=== PATIENT | male | born 1960 | race Caucasian/White ===

== ENCOUNTER → 2018-09-24 | Outpatient (CLI) | payer BC, SELFPAY ==
--- NOTE | 2018-09-24 13:51 | DI.US_ITS ---
SYMPTOM/DIAGNOSIS: PROSTATE NODULE, RISING PSA, N40.2 PROSTATE ULTRASOUND GUIDED BIOPSY: Prostate ultrasound was performed for Dr. Salguero for guidance with prostate biopsy. The prostate volume is calculated at 36 cc's. Please see procedure note for details.
--- NOTE | 2018-09-24 14:30 | PROST_PTH ---
PATIENT: Adolfo Linares LOC: TG U#:[id number] AGE/SX: 58/M ROOM: RE09/24/[address]: Alis Santo DNP : 1960 BED: DIS: 09/24/2018 SPEC #: [id number] RECD: 09/24/18 17:58 STATUS: ALISON RE #: [id number] TAY: 09/24/18 14:[address]: Alis Santo DEPT: Surgical Specimen RECD BY: Marlene French ENTERED: 09/24/18 17:59 SP TYPE: PROST OTHR DR: Bong Harden Tissues: 1 - PROSTATE NEEDLE BIOPSY 2 - PROSTATE NEEDLE BIOPSY 3 - PROSTATE NEEDLE BIOPSY 4 - PROSTATE NEEDLE BIOPSY 5 - PROSTATE NEEDLE BIOPSY 6 - PROSTATE NEEDLE BIOPSY 7 - PROSTATE NEEDLE BIOPSY 8 - PROSTATE NEEDLE BIOPSY 9 - PROSTATE NEEDLE BIOPSY 10 - PROSTATE NEEDLE BIOPSY 11 - PROSTATE NEEDLE BIOPSY 12 - PROSTATE NEEDLE BIOPSY Procedures: GROSS AND MICRO LEVEL 4 Comments: [id number]
--- NOTE | 2018-09-24 14:37 | ROE_ITS ---
Date of service: 09/24/18 Time of Service: 14:37 Operative Note PRE-OP DIAGNOSIS: Elevated PSA POST-OP DIAGNOSIS: same PROCEDURE: Transrectal ultrasound-guided biopsy of the prostate SURGEON: Greg Salguero ANESTHESIA: local ESTIMATED BLOOD LOSS: 0 PATHOLOGY: other COMPLICATIONS: None Patient was transported to: other Patient's condition: stable Indications: This is a 58-year-old gentleman who was identified as having an a bnormal palpable area on the left side of his prostate. He was also found to have an elevated PSA of 5.0 ng/mL. He presents for prostate ultrasound-guided biopsy. Procedure Description: The patient was brought to the procedure room on 09/24/2018. He was given a preoperative antibiotic and mechanical bowel prep. He was placed in the left lateral position. Transrectal imaging the prostate was performed using a transrectal probe. The prostate was imaged in transverse and longitudinal planes. The prostatic volume was calculated at 36 cc. There was a discrete hypoechoic area in the left peripheral zone just to the left of the midline. This area extended from the mid prostate out to the apex. No abnormalities were seen up towards the prostatic base or seminal vesicles. A periprosthetic nerve block was then performed using 1% Xylocaine without epinephrine. A total of 12 laterally directed biopsies were taken. At least 3 of the cores were taken through the hypoechoic area. Each biopsy was labeled and sent to pathology for permanent section. He tolerated this procedure well with no complication. He will follow-up in 1 week to review the surgical pathology.
== END ==
PROVIDERS: PCP Family Medicine; Visit Provider Nurse Practitioner Gerontology
DX: C61 Malignant neoplasm of prostate (principal); N40.2 Nodular prostate without lower urinary tract symptoms; R97.20 Elevated prostate specific antigen [PSA]; N41.1 Chronic prostatitis; N42.89 Other specified disorders of prostate
CPT/HCPCS: 55700; 76942; 88305

== ENCOUNTER 2018-10-22 00:15 | Outpatient (CLI) | payer BC, SELFPAY ==
--- NOTE | 2018-10-22 09:59 | DI.NM_ITS ---
SYMPTOMS/DIAGNOSIS: ELEVATED PSA, BASELINE STUDY, ? METS WHOLE BODY BONE SCAN: 24.0 mCi of technetium 99m MDP were administered IV. There is increased activity in both AC joints, likely representing degenerative change. There is a tiny focus of increased activity in the left lower posterior rib. The remainder of the skeletal labelling is unremarkable. There are no findings to suggest metastatic disease. IMPRESSION: No evidence of metastatic disease.
== END 2018-10-22 00:35 ==
PROVIDERS: PCP Family Medicine; Visit Provider Urology
DX: R97.0 Elevated carcinoembryonic antigen [CEA] (principal); M19.011 Primary osteoarthritis, right shoulder; M19.012 Primary osteoarthritis, left shoulder
CPT/HCPCS: 78306

== ENCOUNTER 2018-11-01 00:28 | Outpatient (CLI) | payer BC, SELFPAY ==
--- NOTE | 2018-11-01 08:27 | DI.CT_ITS ---
SYMPTOMS/DIAGNOSIS: PROSTATE CA, C61, ? METS CT SCAN OF THE ABDOMEN AND PELVIS: CT scan of the abdomen and pelvis was performed following the uneventful administration of intravenous and oral contrast material. Arterial images through the liver were performed. There are no priors for comparison. Comparison bone scan is 10/22/18. The visualized lung bases show no acute abnormality. The liver is normal in size. No evidence of a hepatic mass is seen. The portal, superior mesenteric and splenic veins are patent. The gallbladder is negative. No biliary ductal dilatation is seen. The pancreas, spleen and adrenal glands are unremarkable. The kidneys show normal and symmetric enhancement. No evidence of a solid renal mass or obstruction. The urinary bladder is intact. The reproductive organs are unremarkable. The abdominal aorta is of normal caliber. No aneurysmal dilatation is seen. No significant abdominal or pelvic adenopathy, ascites or pneumoperitoneum is present. The bowel shows no evidence of obstruction or inflammation. There is a normal appendix present. The bones are intact. No suspicious lytic or sclerotic lesions are seen. Mild degenerative changes are seen in the spine. There are ill-defined areas of soft tissue density material in the subcutaneous tissues of the right and left anterior abdominal wall. This is nonspecific. Please correlate with the patient's physical exam. These areas lie just lateral to the umbilicus. IMPRESSION: No evidence of abdominal or pelvic metastatic disease.
[2018-11-01 08:59] LABS: CREATININE 0.84 mg/dL (0.70-1.30)
[2018-11-01] MEDS: Omnipaque 350 MG/ML 100 ML BTL IJ (10:13)
[2018-11-01] MEDS: Omnipaque 350 MG/ML 50 ML BTL PO (10:14)
[2018-11-01] MEDS: Breeza Beverage 473 ML BTL PO (10:14)
== END 2018-11-01 00:48 ==
PROVIDERS: PCP Family Medicine; Visit Provider Urology
DX: C61 Malignant neoplasm of prostate (principal); Z12.89 Encounter for screening for malignant neoplasm of other sites; M79.89 Other specified soft tissue disorders
CPT/HCPCS: 36415; 74177; 82565; J3490; Q9967

== ENCOUNTER 2019-02-04 09:22 | Outpatient (CLI) | payer BC, SELFPAY ==
[2019-02-04 16:13] LABS: Bilirubin Negative (Negative); Blood Negative (Negative); Clarity Clear; Glucose Negative (Negative); Ketones Negative (Negative); Leukocyte Esterase Negative (Negative); Nitrite Negative (Negative); Specific Gravity <= 1.005 (1.005-1.025); Urobilinogen 0.2 EU/dL (Up TO 0.2); pH 5.5 (5-8)
== END 2019-02-04 09:42 ==
PROVIDERS: PCP Family Medicine; Visit Provider Radiology Radiation Oncology
DX: R30.0 Dysuria (principal)
CPT/HCPCS: 81003

== ENCOUNTER 2019-04-21 10:20 | Outpatient (CLI) | payer BC, SELFPAY ==
[2019-04-22 09:04] LABS: PSA, Diagnostic <0.1 ng/ml (0-3.5)
[2019-04-23 11:41] LABS: Testosterone, Total 9.6 ng/dL (240-950)
== END 2019-04-21 10:40 ==
PROVIDERS: PCP Family Medicine; Visit Provider Radiology Radiation Oncology
DX: C61 Malignant neoplasm of prostate (principal)
CPT/HCPCS: 36415; 84403; 84153

== ENCOUNTER 2019-05-24 09:59 | Outpatient (CLI) | payer BC, SELFPAY ==
[2019-05-25 09:52] LABS: PSA, Screening <0.1 ng/ml (0-3.5)
[2019-05-26 19:08] LABS: Testosterone, Total 9.4 ng/dL (240-950)
== END 2019-05-24 10:19 ==
PROVIDERS: PCP Family Medicine; Visit Provider Radiology Radiation Oncology
DX: C61 Malignant neoplasm of prostate (principal)
CPT/HCPCS: 36415; 84153; 84403

== ENCOUNTER 2019-08-19 10:05 | Outpatient (CLI) | payer BC, SELFPAY ==
[2019-08-19 11:07] LABS: Abs Immature Grans 0.01 k/cumm (0.0-0.09); Absolute Basophil Count 0.01 k/cumm (0.0-0.2); Absolute Eosinophil Count 0.05 k/cumm (0.0-0.7); Absolute Lymphocyte Count 0.48 k/cumm (1.2-3.4); Absolute Monocyte Count 0.49 k/cumm (0.11-0.7); Basophils % 0.1; Eosinophils % 0.7; HCT 38.4 % (40.0-50.0); HGB 13.1 g/dL (13.5-17.5); Immature Grans % 0.1; Lymphocytes % 6.9; Mean Corp. HGB Concentration 34.1 g/dL (32.0-36.0); Mean Corpuscular Hemoglobin 31.2 pg (27.0-33.0); Mean Corpuscular Volume 91.4 fL (80-95); Mean Platelet Volume 9.5 fL (8.0-11.0); Monocytes % 7.1; Neutrophils % 85.1; Platelet Count 222 x1000/uL (130-400); RBC Distribution Width 12.8 % (11.8-14.1); White Blood Cell Count 6.94 k/cumm (4.4-10.8)
[2019-08-19 11:55] LABS: ALT 41 U/L (16-63); AST 18 U/L (15-37); Albumin 3.7 g/dL (3.4-5.0); Alkaline Phosphatase 65 U/L (46-116); Anion Gap 3.6 mmol/L (3-11); BUN 19 mg/dL (7-18); Bilirubin, Total 0.4 mg/dL (0.2-1.0); CO2 30.4 mmol/L (21.0-32.0); CREATININE 0.89 mg/dL (0.70-1.30); Chloride 102 mmol/L (98-107); Glucose 153 mg/dL (70-100); Potassium 4.6 mmol/L (3.5-5.1); Sodium 136 mmol/L (136-145); Total Protein 6.5 g/dL (6.4-8.2)
[2019-08-21 14:02] LABS: Testosterone, Total 10 ng/dL (240-950)
[2019-08-23 11:50] LABS: PSA, Diagnostic <0.1 ng/ml (0-3.5)
== END 2019-08-19 10:25 ==
PROVIDERS: PCP Family Medicine; Visit Provider Nurse Practitioner
DX: C61 Malignant neoplasm of prostate (principal)
CPT/HCPCS: 36415; 80053; 84403; 84153; 85025

== ENCOUNTER 2019-10-20 14:57 | Emergency (ER) | payer BC, SELFPAY ==
[2019-10-20 15:00] VITALS: BP 142/70; PULSE 67; RESP 20; TEMP 36.5; O2SAT 96
--- NOTE | 2019-10-20 15:12 | W.ED.GENAD ---
Discharge Plan Disposition Patient Disposition: HOME Condition: Stable Discharge Details Chief Complaint: Laceration Clinical Impression: Avulsion of skin of right thumb Primary Care Provider: Bong Harden ED Provider: Adolfo Lam Home Meds and New Rx's Prescriptions: New amoxicillin-pot clavulanate [Augmentin] 875-125 mg tablet 1 tab PO Q12H Qty: 14 RF: 0 Continued Lantus U-100 Insulin 100 unit/mL solution 10 unit SC DIRECTED RF: 0 simvastatin 20 mg tablet 20 mg PO QPM RF: 0 tamsulosin [Flomax] 0.4 mg Capsule 0.4 mg PO HS RF: 0 Humalog U-100 Insulin 100 unit/mL Cartridge subcut AC RF: 0 Discharge Instructions Instructions: Skin Adhesive Care (ED) Medical Decision Making 59 yo male comes in after he got his right thumb in a table saw. Dneies falling or other injuries. He avulsed the lateral surface of the distal right thumb, nail bed intact and no lacerations to close as this was an avulsion. doesn't go down to the bone, no bone exposed. Has full rom of the finger with normal cap refill. I used a finger tourniquet to stop the bleeding and was irrigated and used skin adhesive to cover the wound. Will plcae on prophylactic abx and return precautions given Differential Diagnosis Differential Diagnosis: avulsion, laceration HPI General Mode of arrival: ambulatory. Date/Time Provider Initiated Documentation: 10/20/19 15:02. Limitations to Documentation: no limitations. Information obtained by: patient. History of Present Illness 59 year old M presents to the emergency department with the chief complaint of right thumb injury, described as moderate, Patient reports no radiation. Patient started experiencing this hour(s) (1) and it has been constant. No relieving factors improve symptom(s), No exacerbating factors reported . Patient did receive the following treatments prior to arrival, none Related Data Home Medications Medication Instructions Recorded Confirmed insulin glargine 100 unit/mL 10 unit SC DIRECTED ml 08/25/18 08/25/18 subcutaneous solution simvastatin 20 mg tablet 20 mg PO QPM 08/25/18 08/25/18 Humalog U-100 Insulin unit SUBCUT AC 10/20/19 amoxicillin-pot clavulanate 1 tab PO Q12H #14 tab 10/20/19 [Augmentin] tamsulosin [Flomax] 0.4 mg PO HS 10/20/19 10/20/19 Previous Rx's Medication Instructions Recorded amoxicillin-pot clavulanate 1 tab PO Q12H #14 tab 10/20/19 [Augmentin] Allergies Allergy/AdvReac Type Severity Reaction Status Date / Time pneumococcal vaccine Allergy Unverified 10/20/19 15:01 General Stated Complaint: Laceration DESTINY: 3 Review of Systems All systems reviewed & are unremarkable except as noted in HPI and below Constitutional Constitutional: Denies chills, Denies fever(s) and Denies weakness Cardiovascular Cardiovascular: Denies chest pain and Denies dyspnea Respiratory Respiratory: Denies cough and Denies dyspnea Gastrointestinal Gastrointestinal: Denies abdominal pain, Denies nausea and Denies vomiting Musculoskeletal Musculoskeletal: Denies joint swelling Neurologic Neurologic: Denies weakness [facility] Social History (Updated 08/25/18 @ 14:35 by Thelma Fountain RN) Smoking/Tobacco Use Status: Former Tobacco Use Alcohol Intake: current Alcohol Intake frequency: 0-2 drinks per day Drug use: Never Substance use type: does not use Do you feel safe at home: Yes Do you feel safe in your relationship?: Yes Exam Const General: no acute distress Orientation: alert HENMT Head: normal to inspection Ears: external ears normal General nose exam: external nose normal Mouth: moist mucous membranes Eyes General: appearance normal, both eyes and all related structures Neck Neck: normal visual inspection Resp Effort & Inspection: normal respiratory effort and able to speak in complete sentences Cardio Rate: regular rate Skin General skin exam: no rashes or lesions noted Neuro General: alert and oriented x3 Extrem General: full ROM and normal capillary refill Psych Mental Status: mental status grossly normal Course Vital Signs Vital signs: Vital Signs Temperature 36.5 C 10/20/19 15:00 Pulse 67 10/20/19 15:00 Respiratory Rate 10/20/19 15:00 Blood Pressure 142/70 H 10/20/19 15:00 Pulse Oximetry 96 10/20/19 15:00 Temperature 36.5 C 10/20/19 15:00 Temperature Source Temporal Artery Scan 10/20/19 15:00 Pulse 67 10/20/19 15:00 Respiratory Rate 10/20/19 15:00 Blood Pressure 142/70 H 10/20/19 15:00 Pulse Oximetry 96 10/20/19 15:00 Pain Level 1 10/20/19 15:00
[2019-10-20 15:27] VITALS: BP 142/70; PULSE 67; RESP 20; TEMP 36.5; O2SAT 96
== END 2019-10-20 15:27 | disposition home or self-care (01) ==
LOC: ER 15:29
PROVIDERS: Emergency Provider Emergency Medicine; PCP Family Medicine
DX: S61.011A Laceration without foreign body of right thumb without damage to nail, initial encounter (principal); W31.2XXA Contact with powered woodworking and forming machines, initial encounter; E11.9 Type 2 diabetes mellitus without complications; Z79.4 Long term (current) use of insulin
CPT/HCPCS: 12001

== ENCOUNTER 2019-11-25 09:58 | Outpatient (CLI) | payer BC, SELFPAY ==
[2019-11-25 10:42] LABS: Abs Immature Grans 0.01 k/cumm (0.0-0.09); Absolute Basophil Count 0.01 k/cumm (0.0-0.2); Absolute Eosinophil Count 0.11 k/cumm (0.0-0.7); Absolute Lymphocyte Count 0.52 k/cumm (1.2-3.4); Absolute Monocyte Count 0.44 k/cumm (0.11-0.7); Absolute Neutrophil Count 3.11 k/cumm (1.2-6.7); Basophils % 0.2; Eosinophils % 2.6; HCT 39.2 % (40.0-50.0); HGB 13.2 g/dL (13.5-17.5); Immature Grans % 0.2 %; Lymphocytes % 12.4; Mean Corp. HGB Concentration 33.7 g/dL (32.0-36.0); Mean Corpuscular Hemoglobin 31.2 pg (27.0-33.0); Mean Corpuscular Volume 92.7 fL (80-95); Mean Platelet Volume 9.8 fL (8.0-11.0); Monocytes % 10.5; Neutrophils % 74.1; Platelet Count 231 x1000/uL (130-400); RBC 4.23 m/cumm (4.50-6.00); RBC Distribution Width 12.9 % (11.8-14.1)
[2019-11-25 12:06] LABS: ALT 25 U/L (16-63); AST 16 U/L (15-37); Albumin 3.7 g/dL (3.4-5.0); Alkaline Phosphatase 67 U/L (46-116); Anion Gap 5.3 mmol/L (3-11); BUN 18 mg/dL (7-18); Bilirubin, Total 0.4 mg/dL (0.2-1.0); CO2 31.7 mmol/L (21.0-32.0); CREATININE 0.71 mg/dL (0.70-1.30); Calcium 8.7 mg/dL (8.5-10.1); Chloride 105 mmol/L (98-107); Glucose 96 mg/dL (74-106); Potassium 4.5 mmol/L (3.5-5.1); Sodium 142 mmol/L (136-145); Total Protein 6.3 g/dL (6.4-8.2)
[2019-11-26 14:54] LABS: PSA, Ultrasensitive <0.01 ng/mL (<= 3.5)
[2019-11-29 09:48] LABS: Testosterone, Total 12 ng/dL (240-950)
== END 2019-11-25 10:18 ==
PROVIDERS: PCP Family Medicine; Visit Provider Nurse Practitioner
DX: C61 Malignant neoplasm of prostate (principal)
CPT/HCPCS: 36415; 80053; 84153; 84403; 85025

== ENCOUNTER 2020-05-25 04:12 | Outpatient (CLI) | payer BC, SELFPAY ==
[2020-05-25 15:50] LABS: Abs Immature Grans 0.02 10^3/uL (0.0-0.06); Absolute Basophil Count 0.02 10^3/uL (0.0-0.2); Absolute Lymphocyte Count 0.81 10^3/uL (1.2-3.4); Absolute Monocyte Count 0.36 10^3/uL (0.1-0.8); Absolute Neutrophil Count 3.63 10^3/uL (1.2-6.7); Basophils % 0.4; HCT 38.2 % (40.0-50.0); HGB 12.9 g/dL (13.5-17.5); Immature Grans % 0.4; Lymphocytes % 16.4; MCH 30.7 pg (27.0-33.0); MCHC 33.8 % (32.0-36.0); MPV 9.5 fL (8.0-11.0); Monocytes % 7.3; Neutrophils % 73.5; Nucleated RBC 0 %; Platelet Count 204 10^3/uL (130-400); RDW 12.4 % (11.8-14.1); RDW-SD 40.8 fL; WBC 4.94 10^3/uL (4.4-10.8)
[2020-05-25 17:20] LABS: ALT 24 U/L (16-63); AST 16 U/L (15-37); Albumin 3.9 g/dL (3.4-5.0); Alkaline Phosphatase 71 U/L (46-116); Anion Gap 7.4 mmol/L (3-11); BUN 19 mg/dL (7-18); Bilirubin, Total 0.3 mg/dL (0.2-1.0); CO2 29.6 mmol/L (21.0-32.0); CREATININE 0.73 mg/dL (0.70-1.30); Calcium 9.2 mg/dL (8.5-10.1); Chloride 105 mmol/L (98-107); Glucose 102 mg/dL (74-106); Potassium 3.9 mmol/L (3.5-5.1); Sodium 142 mmol/L (136-145); Total Protein 6.7 g/dL (6.4-8.2)
[2020-05-28 13:41] LABS: PSA, Ultrasensitive <0.01 ng/mL (<= 3.5)
[2020-05-30 16:05] LABS: Testosterone, Total 16 ng/dL (240-950)
== END 2020-05-25 04:32 ==
PROVIDERS: Nurse Practitioner; PCP Family Medicine; Visit Provider Radiology Radiation Oncology
DX: C61 Malignant neoplasm of prostate (principal)
CPT/HCPCS: 36415; 80053; 84153; 84403; 85025

== ENCOUNTER 2020-09-14 12:59 | Outpatient (CLI) | payer BC, SELFPAY ==
[2020-09-14 15:21] LABS: Abs Immature Grans 0.03 10^3/uL (0.0-0.06); Absolute Basophil Count 0.02 10^3/uL (0.0-0.2); Absolute Eosinophil Count 0.08 10^3/uL (0.0-0.7); Absolute Lymphocyte Count 0.66 10^3/uL (1.2-3.4); Absolute Monocyte Count 0.44 10^3/uL (0.1-0.8); Absolute Neutrophil Count 3.88 10^3/uL (1.2-6.7); Basophils % 0.4; Eosinophils % 1.6; HCT 36.9 % (40.0-50.0); HGB 12.6 g/dL (13.5-17.5); Immature Grans % 0.6; Lymphocytes % 12.9; MCH 30.8 pg (27.0-33.0); MCHC 34.1 % (32.0-36.0); MCV 90.2 fL (80-95); MPV 9.6 fL (8.0-11.0); Monocytes % 8.6; Neutrophils % 75.9; Nucleated RBC 0 %; Platelet Count 199 10^3/uL (130-400); RBC 4.09 10^6/uL (4.36-5.78); RDW 12.5 % (11.8-14.1); RDW-SD 40.6 fL; WBC 5.11 10^3/uL (4.4-10.8)
[2020-09-14 15:46] LABS: ALT 26 U/L (16-63); AST 16 U/L (15-37); Albumin 3.7 g/dL (3.4-5.0); Alkaline Phosphatase 70 U/L (46-116); Anion Gap 4.1 mmol/L (3-11); BUN 23 mg/dL (7-18); Bilirubin, Total 0.3 mg/dL (0.2-1.0); CO2 29.9 mmol/L (21.0-32.0); CREATININE 1.12 mg/dL (0.70-1.30); Chloride 104 mmol/L (98-107); Glucose 89 mg/dL (74-106); Potassium 3.8 mmol/L (3.5-5.1); Sodium 138 mmol/L (136-145); Total Protein 6.7 g/dL (6.4-8.2)
[2020-09-18 12:18] LABS: PSA, Ultrasensitive <0.01 ng/mL (<= 3.5)
[2020-09-19 13:27] LABS: Testosterone, Total 8.8 ng/dL (240-950)
== END 2020-09-14 13:19 ==
PROVIDERS: PCP Family Medicine; Visit Provider Nurse Practitioner
DX: C61 Malignant neoplasm of prostate (principal)
CPT/HCPCS: 36415; 80053; 84153; 84403; 85025

== ENCOUNTER 2021-02-07 02:16 | Outpatient (CLI) | payer BC, SELFPAY ==
[2021-02-07 09:44] LABS: Abs Immature Grans 0.05 10^3/uL (0.0-0.06); Absolute Basophil Count 0.03 10^3/uL (0.0-0.2); Absolute Eosinophil Count 0.13 10^3/uL (0.0-0.7); Absolute Lymphocyte Count 0.92 10^3/uL (1.2-3.4); Absolute Monocyte Count 0.44 10^3/uL (0.1-0.8); Absolute Neutrophil Count 3.11 10^3/uL (1.2-6.7); Basophils % 0.6; Eosinophils % 2.8; HCT 38.7 % (40.0-50.0); HGB 13.1 g/dL (13.5-17.5); Immature Grans % 1.1; Lymphocytes % 19.7; MCH 30.9 pg (27.0-33.0); MCHC 33.9 % (32.0-36.0); MCV 91.3 fL (80-95); MPV 9.4 fL (8.0-11.0); Monocytes % 9.4; Neutrophils % 66.4; Nucleated RBC 0 %; Platelet Count 249 10^3/uL (130-400); RBC 4.24 10^6/uL (4.36-5.78); RDW 12.7 % (11.8-14.1); RDW-SD 41.8 fL; WBC 4.68 10^3/uL (4.4-10.8)
[2021-02-07 09:57] LABS: ALT 31 U/L (16-63); AST 15 U/L (15-37); Albumin 3.6 g/dL (3.4-5.0); Alkaline Phosphatase 75 U/L (46-116); BUN 13 mg/dL (7-18); Bilirubin, Total 0.5 mg/dL (0.2-1.0); CREATININE 0.7 mg/dL (0.70-1.30); Calcium 8.9 mg/dL (8.5-10.1); Chloride 108 mmol/L (98-107); Glucose 70 mg/dL (74-106); Potassium 4.4 mmol/L (3.5-5.1); Sodium 144 mmol/L (136-145); Total Protein 6.8 g/dL (6.4-8.2)
[2021-02-08 16:07] LABS: PSA, Ultrasensitive <0.01 ng/mL (<= 3.5)
[2021-02-10 12:47] LABS: Testosterone, Total 11 ng/dL (240-950)
== END 2021-02-07 02:17 | disposition home or self-care (01) ==
LOC: LBO 02:16
PROVIDERS: PCP Family Medicine; Visit Provider Nurse Practitioner
DX: C61 Malignant neoplasm of prostate (principal)
CPT/HCPCS: 36415; 80053; 84153; 84403; 85025

== ENCOUNTER 2021-06-14 03:25 | Outpatient (CLI) | payer BC, SELFPAY ==
[2021-06-14 10:34] LABS: Anion Gap 7.6 mmol/L (3-11); BUN 13 mg/dL (7-18); CO2 30.4 mmol/L (21.0-32.0); CREATININE 0.8 mg/dL (0.70-1.30); Calcium 9.1 mg/dL (8.5-10.1); Chloride 106 mmol/L (98-107); Potassium 3.9 mmol/L (3.5-5.1); Sodium 144 mmol/L (136-145)
[2021-06-14 10:41] LABS: Glucose 38 mg/dL (74-106)
[2021-06-15 14:47] LABS: PSA, Ultrasensitive <0.01 ng/mL (<= 4.5)
[2021-06-18 02:02] LABS: Testosterone, Total 29 ng/dL (240-950)
== END 2021-06-14 03:26 | disposition home or self-care (01) ==
PROVIDERS: PCP Family Medicine; Visit Provider Nurse Practitioner
DX: C61 Malignant neoplasm of prostate (principal)
CPT/HCPCS: 36415; 80048; 84153; 84403

== ENCOUNTER 2021-12-10 03:32 | Outpatient (CLI) | payer BC, SELFPAY ==
[2021-12-10 10:30] LABS: Abs Immature Grans 0.02 10^3/uL (0.0-0.06); Absolute Basophil Count 0.02 10^3/uL (0.0-0.2); Absolute Eosinophil Count 0.09 10^3/uL (0.0-0.7); Absolute Lymphocyte Count 0.87 10^3/uL (1.2-3.4); Absolute Monocyte Count 0.52 10^3/uL (0.1-0.8); Absolute Neutrophil Count 3.77 10^3/uL (1.2-6.7); Basophils % 0.4; Eosinophils % 1.7; HCT 38.6 % (40.0-50.0); HGB 13.3 g/dL (13.5-17.5); Immature Grans % 0.4; Lymphocytes % 16.4; MCHC 34.5 % (32.0-36.0); MCV 92.8 fL (80-95); MPV 9.7 fL (8.0-11.0); Monocytes % 9.8; Neutrophils % 71.3; Nucleated RBC 0 %; Platelet Count 238 10^3/uL (130-400); RBC 4.16 10^6/uL (4.36-5.78); RDW 12.7 % (11.8-14.1); WBC 5.29 10^3/uL (4.4-10.8)
[2021-12-10 10:59] LABS: ALT 20 U/L (16-63); AST 13 U/L (15-37); Albumin 3.7 g/dL (3.4-5.0); Alkaline Phosphatase 74 U/L (46-116); BUN 10 mg/dL (7-18); Bilirubin, Total 0.4 mg/dL (0.2-1.0); CREATININE 0.7 mg/dL (0.70-1.30); Chloride 104 mmol/L (98-107); Glucose 141 mg/dL (74-106); Potassium 4.7 mmol/L (3.5-5.1); Sodium 140 mmol/L (136-145); Total Protein 6.8 g/dL (6.4-8.2)
[2021-12-12 10:06] LABS: PSA, Ultrasensitive <0.01 ng/mL (<= 4.5)
[2021-12-13 16:00] LABS: Testosterone, Total 8.4 ng/dL (240-950)
== END 2021-12-10 03:33 | disposition home or self-care (01) ==
LOC: LBO 03:32
PROVIDERS: PCP Family Medicine; Visit Provider Nurse Practitioner Family
DX: C61 Malignant neoplasm of prostate (principal)
CPT/HCPCS: 36415; 80053; 84153; 84403; 85025

== ENCOUNTER 2022-06-24 03:44 | Outpatient (CLI) | payer BC, SELFPAY ==
[2022-06-24 10:27] LABS: Abs Immature Grans 0.01 10^3/uL (0.0-0.06); Absolute Basophil Count 0.03 10^3/uL (0.0-0.2); Absolute Eosinophil Count 0.08 10^3/uL (0.0-0.7); Absolute Lymphocyte Count 1.04 10^3/uL (1.2-3.4); Absolute Monocyte Count 0.38 10^3/uL (0.1-0.8); Absolute Neutrophil Count 2.76 10^3/uL (1.2-6.7); Basophils % 0.7; Eosinophils % 1.9; HCT 37.3 % (40.0-50.0); HGB 12.7 g/dL (13.5-17.5); Immature Grans % 0.2; Lymphocytes % 24.2; MCH 30.9 pg (27.0-33.0); MCV 91 fL (80-95); MPV 9.5 fL (8.0-11.0); Monocytes % 8.8; Neutrophils % 64.2; Platelet Count 199 10^3/uL (130-400); RBC 4.11 10^6/uL (4.36-5.78); RDW 12.8 % (11.8-14.1); RDW-SD 42.5 fL
[2022-06-24 10:57] LABS: ALT 21 U/L (16-63); AST 8 U/L (15-37); Albumin 3.6 g/dL (3.4-5.0); Alkaline Phosphatase 71 U/L (46-116); Anion Gap 5.5 mmol/L (3-11); BUN 18 mg/dL (7-18); Bilirubin, Total 0.6 mg/dL (0.2-1.0); CO2 30.5 mmol/L (21.0-32.0); CREATININE 0.8 mg/dL (0.70-1.30); Calcium 8.7 mg/dL (8.5-10.1); Chloride 104 mmol/L (98-107); Estimated GFR 100.69 (mL/min/1.73m2); Glucose 71 mg/dL (74-106); Potassium 4.2 mmol/L (3.5-5.1); Sodium 140 mmol/L (136-145); Total Protein 6.7 g/dL (6.4-8.2)
[2022-06-25 13:40] LABS: PSA, Ultrasensitive <0.01 ng/mL (<= 4.5)
[2022-06-28 08:49] LABS: Testosterone, Total 96 ng/dL (240-950)
== END 2022-06-24 03:45 | disposition home or self-care (01) ==
LOC: LBO 03:45
PROVIDERS: PCP Family Medicine; Visit Provider Nurse Practitioner Family
DX: C61 Malignant neoplasm of prostate (principal)
CPT/HCPCS: 36415; 80053; 84153; 84403; 85025

== ENCOUNTER 2022-12-23 02:31 | Outpatient (CLI) | payer MEDICAID, SELFPAY ==
[2022-12-24 17:16] LABS: PSA, Ultrasensitive 0.05 ng/mL (<= 4.5)
[2022-12-29 15:16] LABS: Testosterone, Total 187 ng/dL (240-950)
== END 2022-12-23 02:32 | disposition home or self-care (01) ==
LOC: LBO 02:31
PROVIDERS: PCP Family Medicine; Visit Provider Nurse Practitioner Family
DX: C61 Malignant neoplasm of prostate (principal)
CPT/HCPCS: 36415; 84153; 84403

== ENCOUNTER 2023-03-16 10:28 | Outpatient (CLI) | payer MEDICAID, SELFPAY ==
--- NOTE | 2023-03-16 16:11 | DI.US_ITS ---
APPROVED REPORT EXAM: Comprehensive 2D, Doppler, and color-flow Echocardiogram Patient Location: Out-Patient [employer] Groundskeeper: Suad Santiago RDCS (AE) Indications: A Fib, A Flutter Other Information Study Quality: Adequate Conclusion Normal left ventricular wall thickness and chamber size. Ejection fraction is 60%. Wall motion is n ormal Normal right ventricular size and systolic function Both atria are normal in size Aortic valve is mildly sclerotic and trileaflet without stenosis or regurgitation Right ventricular systolic pressure is 26 mmHg Patient was in sinus rhythm throughout the test Wall motion Left Ventricle The left ventricle is normal size. The left ventricular systolic function is normal. The left ventric ular ejection fraction is within the normal range. There is normal left ventricular wall thickness. T here is normal LV segmental wall motion. There is no ventricular septal defect visualized. LVEF is 60 %. Right Ventricle The right ventricle is normal size. The right ventricular systolic function is normal. The RVSP is 26 .0mmHg. Atria The left atrium size is normal. The right atrium size is normal. The interatrial septum is intact wit h no evidence for an atrial septal defect. Aortic Valve The Aortic valve is mildly sclerotic. Aortic valve is trileaflet. There is no aortic valvular stenosi s. No aortic regurgitation is present. Mitral Valve The mitral valve is normal in structure. No evidence of mitral valve stenosis. Trace mitral regurgita tion. Tricuspid Valve The tricuspid valve is normal in structure. There is no tricuspid valve stenosis. Trace tricuspid reg urgitation. Pulmonic Valve The pulmonary valve is normal in structure. There is no pulmonic valvular stenosis. There is no pulmo julieta valvular regurgitation. Great Vessels The aortic root is normal in size. The ascending aorta is normal in size. Aortic arch is normal in ca liber. IVC is normal in size and collapses >50% with inspiration. Pericardium There is no pericardial effusion. 2D Dimensions IVSD d PLAX 0.93 cm M: 0.6-1.2 LV Vol A2C d MOD 101.5 mL LVPW d PLAX 0.95 cm M: 0.6 - 1.2 LV Vol A4C d MOD 111.4 mL LVID d PLAX 4.99 cm M: 4.2 - 5.8 LA vol/ BSA A2C s A-L 22.2 mL/m2 LVDs 3.30 cm M: 2.5 - 4.0 LA vol/ BSA A4C s A-L 20.1 mL/m2 Ao Root d 2.77 cm M: 3.1 - 3.7 LA Vol/ BSA Biplane s A-L 22.9 mL/m2 RA Area A4C 17.10 cm2 LA Area A4C s MOD 18.21 cm2 RA Vol/ BSA A4C s A-L 20.0 mL/m2 LA Area A2C s MOD 17.70 cm2 Ao Asc Diam d 3.36 cm M: 2.6 - 3.4 LV EF A4C MOD 60.4 % LV EF Teichholz 61.7 % LV EF A2C MOD 59.3 % LVEF (Marmolejo's) 59.30 % M: 52 - 72 LV EF Biplane MOD 59.3 % LV Volume 76.22 mL M: 62 - 150 SV 63.06 mL LV Volume Index 32.99 mL/m2 M: 34 - 74 SV Index 27.34 mL/m2 LV Vol Biplane MOD 106.3 mL FS 33.25 % M-Mode TAPSE 2.35 cm (M/F) >1.7 LV Diastology MV E' medial 0.082 (>0.07 m/s) E/A Ratio 1.4 LV E/e MED 9.90 (<14) MV E Vmax 0.82 (0.4-1.3 m/s) MV E' lateral 0.110 (>0.1 m/s) MV A Vmax 0.60 (0.4-1.3 m/s) LV E/e LAT 7.35 (<14) MV E/A Ratio 1.29 MV E/E' medial 9.93 MV E/E' lateral 7.38 Aortic Valve LVOT Area 3.05 cm2 AoV Area Vmax 2.60 cm2 LVOT Vmax 1.24 m/s AoV Area/ BSA (Vmax) 1.13 cm2/m2 LVOT Mean [place]. 0.72 m/s SURAJ Mean [place]. 2.29 cm2 LVOT Peak Grad 6.1 mmHg SURAJ Mean [place]. Index 0.99 cm2/m2 LVOT Mean Grad 2.6 mmHg LVOT VTI 0.293 m LVOT Diam s 1.95 cm AoV Vmax 1.45 m/s Velocity Ratio 0.86 AoV Mean [place]. 0.96 m/s AoV Peak Grad 8.5 mmHg LVOT SV 89.24 mL AoV Mean Grad 4.3 mmHg AoV VTI 0.322 m AoV Area VTI 2.77 cm2 AoV Area/ BSA (VTI) 1.20 cm/m2 Mitral Valve MV DT 224 (160-240 msec) MV PHT 65 msec MV Area PHT 3.39 cm2 Pulmonary Valve PV Vmax 0.97 (0.5-1.5 m/s) RVOT Peak Gr. 2.61 mmHg PV Peak Grad 3.8 mmHg RVOT Mean Gr. 1.25 mmHg PV Mean Grad 2.1 mmHg RVOT VTI 0.164 m PV VTI 0.221 m RVOT Vmax 0.81 m/s Tricuspid Valve TR Peak Grad 22.9 mmHg TR Vmax 2.40 m/s RA Pressure 3.00 mmHg RVSP (TR) 26.0 mmHg
== END 2023-03-16 10:48 ==
LOC: DI 10:32
PROVIDERS: PCP Family Medicine; Visit Provider Family Medicine
DX: R00.2 Palpitations (principal)
CPT/HCPCS: 93306

== ENCOUNTER 2023-04-20 08:56 | Outpatient (CLI) | payer MEDICAID, SELFPAY ==
--- NOTE | 2023-04-20 08:45 | RT.EKG_ITS ---
APPROVED REPORT Exam: Resting ECG Reason for Exam: palpitations Patient Location: O HR:58 bpm ECG Measurements Heart Rate 58 AXIS LA 189 P 39 QRSd 96 QRS 54 QT 430 T 30 QTc 423 Conclusion Sinus rhythm...normal P axis, V-rate 50- 99 Normal Electrocardiogram
== END 2023-04-20 08:57 | disposition home or self-care (01) ==
LOC: DI.CARD 08:56
PROVIDERS: PCP Family Medicine; Visit Provider Internal Medicine Cardiovascular Disease
DX: R00.2 Palpitations (principal)
CPT/HCPCS: 93010

== ENCOUNTER 2023-07-14 01:58 | Outpatient (CLI) | payer MEDICAID, SELFPAY ==
[2023-07-15 19:10] LABS: PSA, Ultrasensitive 0.14 ng/mL (<= 4.5)
[2023-07-17 13:53] LABS: Testosterone, Total 334 ng/dL (240-950)
== END 2023-07-14 01:59 | disposition home or self-care (01) ==
LOC: LBO 01:58
PROVIDERS: PCP Family Medicine; Visit Provider Nurse Practitioner Family
DX: C61 Malignant neoplasm of prostate (principal)
CPT/HCPCS: 36415; 84153; 84403

== ENCOUNTER 2024-01-11 05:54 | Outpatient (CLI) | payer MEDICAID, SELFPAY ==
[2024-01-12 21:14] LABS: PSA, Ultrasensitive 0.18 ng/mL (<= 4.5)
[2024-01-15 14:57] LABS: Testosterone, Total 317 ng/dL (240-950)
== END 2024-01-11 05:55 | disposition home or self-care (01) ==
PROVIDERS: PCP Family Medicine; Visit Provider Colon & Rectal Surgery
DX: C61 Malignant neoplasm of prostate (principal)
CPT/HCPCS: 36415; 84153; 84403

== ENCOUNTER 2024-07-14 01:54 | Outpatient (CLI) | payer MEDICAID, SELFPAY ==
[2024-07-16 11:50] LABS: PSA, Ultrasensitive 0.18 ng/mL (<= 4.5)
[2024-07-17 13:37] LABS: Testosterone, Total 403 ng/dL (240-950)
== END 2024-07-14 01:55 | disposition home or self-care (01) ==
LOC: LBO 01:54
PROVIDERS: PCP Family Medicine; Visit Provider Colon & Rectal Surgery
DX: C61 Malignant neoplasm of prostate (principal)
CPT/HCPCS: 36415; 84153; 84403

== ENCOUNTER 2025-04-24 13:37 | Outpatient (CLI) | payer MEDICAID, SELFPAY ==
--- NOTE | 2025-04-24 13:30 | RT.EKG_ITS ---
APPROVED REPORT Exam: Resting ECG Reason for Exam: palpitations Patient Location: O HR:58 bpm ECG Measurements Heart Rate 58 AXIS MS 186 P -6 QRSd 98 QRS 53 QT 431 T 22 QTc 424 Conclusion Sinus rhythm...normal P axis, V-rate 50- 99 Normal Electrocardiogram
== END 2025-04-24 13:38 | disposition home or self-care (01) ==
LOC: DI.CARD 13:37
PROVIDERS: PCP Family Medicine; Visit Provider Registered Nurse
DX: R00.2 Palpitations (principal)
CPT/HCPCS: 93010